=== PATIENT | female | born 1985 | race Caucasian/White ===

== ENCOUNTER 2024-02-19 13:46 | Outpatient (CLI) | payer BC, SELFPAY ==
--- NOTE | ~2024-02-19 | MM_ITS ---
EXAMINATION: MM screening [place] BI w nieves HISTORY: Screening TECHNIQUE: Craniocaudal and mediolateral oblique 3-D tomosynthesis images were obtained and synthetic 2-D images were generated. CAD analysis was submitted and interpreted. COMPARISON: No prior mammogram is available for comparison at this institution. BREAST PARENCHYMAL COMPOSITION: Not Dense. The breasts are almost entirely fatty. FINDINGS: There is no evidence of suspicious mass, calcification, or architectural distortion to sugg est malignancy in either breast. There has been no suspicious interval change. IMPRESSION: 1. No mammographic evidence of malignancy. 2. Recommend routine screening mammography in one year. BI-RADS Category 1: Negative Reviewed, dictated and finalized at location B.
== END 2024-02-19 13:47 ==
LOC: MICIMG 13:47
PROVIDERS: PCP Physician Assistant; Visit Provider Obstetrics & Gynecology
DX: Z12.31 Encounter for screening mammogram for malignant neoplasm of breast (principal)
CPT/HCPCS: 77063; 77067

== ENCOUNTER 2024-08-29 14:25 | Emergency (ER) | payer BC, SELFPAY ==
[2024-08-29 14:41] VITALS: BP 128/71; PULSE 78; RESP 16; TEMP 36.4; O2SAT 99
--- NOTE | 2024-08-29 15:14 | ED_ITS ---
HPI - URI/Sore Throat General Chief Complaint: Upper Respiratory Infection Stated Complaint: Cough/Runny Nose Time Seen by Provider: 08/29/24 15:02 Source: patient and RN notes reviewed Mode of arrival: ambulatory Limitations: no limitations History of Present Illness HPI Narrative: Patient presents today with a 3 week history of cough that waxes and wanes and is occasionally productive. She also reports a 7-10 day history of nasal congestion and rhinorrhea. Denies shortness of breath or fever. She has tried NyQuil, Tylenol, and ibuprofen without much relief. Patient states her coughing creases with laughing. No history of asthma or COPD. She is a nonsmoker. States her entire family has been sick with similar symptoms in are currently on antibiotics. Related Data Home Medications ?Medication ?Instructions ?Recorded ?Confirmed ?Last Taken ?Type norethindrone 1 mg-ethinyl tablet 08/29/24 Unknown History estradiol 20 mcg (21)-iron 75 mg (7) tablet (Klaudia Fe 08/31 (28)) Allergies Allergy/AdvReac Type Severity Reaction Status Date / Time Sulfa (Sulfonamide Allergy Mild ITCHING Verified 08/29/24 14:43 Antibiotics) Review of Systems Review of Systems: CONSTITUTIONAL: Denies body aches, fever, chills, or sweats. EYES: Denies visual changes, redness, or discharge. ENT: Denies sore throat, or otalgia.+ congestion, rhinorrhea CARDIOVASCULAR: Denies chest pain, palpitations, or edema. RESPIRATORY: Denies dyspnea.+ cough GASTROINTESTINAL: Denies abdominal pain, nausea, vomiting, or diarrhea. GENITOURINARY: Denies dysuria or hematuria. SKIN: Denies rash, itching, or wounds. MUSCULOSKELETAL: Denies back pain, joint pain, or myalgia. NEUROLOGIC: Denies headache, numbness, tingling, or weakness. PSYCH: Denies depression or anxiety. [facility] Past Medical History Medical History Obesity (BMI 30-39.9) Hemorrhoids Anal fissure BRBPR (bright red blood per rectum) Social History Social History Smoking status: Never smoker Comments At time of signature, I have reviewed and agree with nursing past medical, surgical, social and family history unless otherwise noted. Please see nursing chart for further information. There is no relevant family history pertinent to the presenting complaint Exam Narrative: GENERAL: Well-appearing, well-nourished, and in no acute distress. HEAD: Normocephalic, atraumatic. EYES: EOMI. No redness or drainage. Conjunctivae normal. ENT: Mucous membranes pink and moist. Nares mildly congested with rhinorrhea. TMs normal bilaterally. Throat normal. Uvula midline. NECK: Normal AROM. Supple. No lymphadenopathy. CHEST: No respiratory distress. Clear to auscultation. HEART: Regular rate and rhythm. No murmur appreciated. EXTREMITIES: Normal range of motion. No edema. SKIN: Warm, dry, no rash. Capillary refill normal. Normal skin turgor. NEURO: No focal deficits. Alert and oriented x3. Gait steady. PSYCH: Normal affect. No signs of depression or anxiety. Course Course Level of Care: Express Care Visit Vital Signs Vital signs: Vital Signs Temperature 97.5 F L 08/29/24 14:41 Pulse Rate 78 08/29/24 14:41 Respiratory Rate 16 08/29/24 14:41 Blood Pressure 128/71 08/29/24 14:41 Pulse Oximetry 99 08/29/24 14:41 Temperature 97.5 F L 08/29/24 14:41 Pulse Rate 78 08/29/24 14:41 Respiratory Rate 16 08/29/24 14:41 Blood Pressure 128/71 08/29/24 14:41 Pulse Oximetry 99 08/29/24 14:41 Oxygen Delivery Room Air 08/29/24 14:45 Reviewed MDM - URI/Sore Throat MDM Narrative Medical decision making narrative: Patient will be started on a short course of prednisone and Augmentin for bronchitis and possible sinusitis, as well as some benzonatate for cough. Anticipatory guidance given. Differential Diagnosis Differential diagnosis: Likely upper respiratory infection, sinusitis, viral infection, bronchitis and other (Pneumonia) Critical Care Time Critical Care Time Critical Care Time: No Discharge Plan Discharge Clinical Impression: Bronchitis Sinusitis Qualifiers: Sinusitis location: unspecified location Chronicity: acute Recurrence: non- recurrent Qualified Code(s): J01.90 - Acute sinusitis, unspecified Patient Disposition: Home, Self-Care Condition: Stable Instructions: Antibiotic Form, Sinusitis (ED), Acute Bronchitis (ED) Additional Instructions: Please take all medication as prescribed. Follow-up with your PCP next week if symptoms are not improving. Your blood pressure was elevated above 120/80 today at Urgent Care. This puts you above the threshold for follow up. Please schedule a followup visit with your personal physician as soon as possible, for further evaluation and treatment. Even blood pressure exceeding 120/80 may indicate pre-hypertension. Patient Language: Guyanese Prescriptions: New benzonatate 200 mg capsule 200 mg PO TID PRN (Reason: cough) Qty: 20 0RF prednisone 20 mg tablet 40 mg PO DAILY 5 Days Qty: 10 0RF amoxicillin-pot clavulanate 875-125 mg tablet 1 tablet PO Q12H 7 Days Qty: 14 0RF No Action norethindrone-e.estradiol-iron [Klaudia Cohen 08/31 (28)] 1 mg-20 mcg (21)/75 mg (7) tablet Follow-up/Referrals: Irwin,BOSTON Torres [Primary Care Provider] - Time of Disposition: 15:17
== END 2024-08-29 15:23 | disposition home or self-care (01) ==
PROVIDERS: Emergency Provider Nurse Practitioner; PCP Physician Assistant
DX: J40 Bronchitis, not specified as acute or chronic (principal); J01.90 Acute sinusitis, unspecified; E66.9 Obesity, unspecified; Z68.41 Body mass index [BMI] 40.0-44.9, adult
CPT/HCPCS: 99213; G0463

== ENCOUNTER 2024-09-29 00:51 | Day surgery (SDC) | payer BC, SELFPAY ==
[2024-09-15 15:48] VITALS: BMI 43.0
--- NOTE | 2024-09-28 11:27 | SUR.PREOP ---
Pt called this morning inquiring about the weather and us cancelling due to the weather. Instructed the patient that we will be here to do cases tomorrow. Pt voiced understanding and said she would be here for her procedure.
--- OUTSIDE RECORDS SUMMARY | 2024-09-29 00:53 | XMS_ITS | Data Portability ---
Author Organization [facility] Jamia Griffin Address [address] [facility] [place] [place] [address] Care Team Providers Care Supervisory Geographer Name Role Phone MELISSA GAYLE Primary Care Provider Unavailab le Assessment Encounter Date Assessment Date Assessment LastModified by Organization Details LastModified Time 10/16/2023 10/16/2023 Pap smear jul [address] Stella Bashir. Mammogram was ordered , still to complete. [email or web address] Not available 10/16/2023 10:50:51 Plan of Treatment Reminders Order Date Submit Date Provider Last Modified By Organization Details Last Modified Time Details Appointments ANY 15 2024 10:30A M LAURA Blount Not available Not available Not available Lab TSH + free T4, serum 2023 024 [facility], [address], [place], [address], 11/28/2023 09:17:09 insulin, serum 2023 024 [facility], [address], [place], [address], 12/06/2023 17:07:52 lipid panel, serum 2023 024 [facility], [address], [place], [address], 11/28/2023 09:17:09 CBC w/ auto diff 2023 024 [facility], [address], [place], [address], 12/06/2023 17:07:52 CMP, serum or plasma 2023 024 [facility], [address], [place], [address], 12/06/2023 17:07:52 HbA1c (hemoglob in A1c), blood 2023 024 [facility], [address], [place], [address], 12/06/2023 17:07:52 Referral gastroent erologist referral - chronic off and on rectal irritatio n. 2023 024 MARGARET Funes [employer], [address], [address], [place], [address], 01/23/2024 17:58:33 Procedures None recorded. Surgeries None recorded. Imaging None recorded. Medication Orders alprazola m 0.5 mg tablet 2023 [id number], [address] , [place], [place], [phone], 10/27/2023 13:47:08 Patient TargetsNo targets recorded. Patient InstructionsNo instructions recorded. Reason for Referral Combination Presser Referral for Rectal irritation chronic off and on rectal irritation. Referring Physician: Melissa Gayle, Internal Medicine, Encounter Date: 10/16/2023 Results Created Date Observation Date Name Description Value Unit Range Abnormal Flag Note LastModifiedBy Organization Detail LastModifiedTime 02/19/20 24 02/19/2024 MAMMO , scree tatum, bilat eral No observ ation record ed. [email or web address] [facility] [address], [place], [address], 02/19/2024 19:50:36 Result Notes None recorded. Problems Name Problem SNOMED Code Status Onset Date Resolution Date Notes Provider Name and Address Organization Details Recorded Time Vitamin D deficiency 37756720 Active 2023 Dayan guadalupe, [place] - [facility] 4 11:46:06 Hyperlipidemia 34526822 Active 2023 Dayan Camilo [place], [place] [facility] 4 11:46:12 Generalized anxiety disorder 25876546 Active 2023 Dayan guadalupe, [place] - [facility] 4 11:46:21 Body mass index 40+ - severely obese 096706057 Active 2024 Sarita Cole MA null, [place] - [facility] 5 17:11:52 Problem Notes None recorded. Procedures Surgical History Date Name Laterality Status Provider Name and Address Organization Details Recorded Time extraction of wisdom tooth completed Dayan Camilo [place] - [facility] 10/16/2023 11:47:13 Imaging Results Imaging Date Name Status LastModified by Organiz ation Details LastModified Time 02/19/2024 MAMMO, screening, bilateral completed [email or web address] [facility] [address], [place], [address], 02/19/2024 19:50:36 Procedure Notes None recorded. Medical Equipment None Reported. Allergies Allergen ID Allergen Name Allergen Category Reaction Reaction Severity Criticality Documentation Date Start Date Code Code System Note Provider Name and Address Organization Details Recorded Time 309396 Substance with sulfonami de structure and antibacte rial mechanism of action (substanc e) medicatio n Not available Not available Not available 10/16/2023 28279 8003 SNOMED Not Available Not Available Not Available Medications Name Sig Start Date Stop Date Status Note LastModified by Organization Details LastModified Time benzonatate 200 mg capsule TAKE 1 CAPSULE BY MOUTH THREE TIMES DAILY NEEDED FOR COUGH active Not Available Not Available No t Available Medrol (Juan Francisco) 4 mg tablets in a dose pack use as directed 2024 active Not Available Not Available Not Avai lable prednisone 20 mg tablet TAKE 2 TABLETS BY MOUTH DAILY FOR 5 DAYS 09/22 completed Not Available Not Available Not Available Zithromax Z-Juan Francisco 250 mg tablet TAKE 2 TABLETS (500 MG) BY ORAL ROUTE ONCE DAILY FOR 1 DAY THEN 1 TABLET (250 MG) BY ORAL ROUTE ONCE DAILY FOR 4 DAYS 2024 active Not Available Not Available Not Avai lable hydrocortis one 2.5 % topical cream with perineal applicator APPLY LIBERALLY TOPICALLY TO THE AFFECTED AREA TWICE DAILY NEEDED active Not Available Not Available No t Available alprazolam 0.5 mg tablet TAKE 1 TABLET BY MOUTH THREE TIMES DAILY NEEDED FOR PLANE FLIGHTS active Not Available Not Available No t Available alprazolam 0.25 mg tablet TAKE 1 TABLET BY MOUTH 1 HOUR PRIOR TO VISIT 04/20 completed Not Available Not Available Not Available famciclovir 500 mg tablet TAKE 1 TABLET BY MOUTH TWICE DAILY NEEDED active Not Available Not Available No t Available amoxicillin 875 mg-potassiu m clavulanate 125 mg tablet TAKE 1 TABLET BY MOUTH EVERY 12 HOURS FOR 7 DAYS 09/22 completed Not Available Not Available Not Available [facility] 08/31 () 1 mg-20 mcg (21)/75 mg (7) tablet active Not Available Not Available N ot Available [facility] 08/31 () active Not Available Not Available No t Available Vitals Date Recorded Body weight Heart rate Respiratory rate Oxygen saturation Oxygen saturation in Arterial blood by Pulse oximetry Body mass index (BMI) Body height Systolic blood pressure Diastolic blood pressure Provider Name and Address Organization Details Last Updated DateTime 4 975085. 53 g 95 /min 18 /min 98 % 98 % 42.4 kg/m2 170.18 cm 128 mm[Hg] 86 mm[Hg] Sarita Cole MA [facility] 4 10:28:48 Date Recorded Systolic blood pressure Diastolic blood pressure Provider Name and Address Organization Details Last Updated DateTime 10/16/2023 128 mm[Hg] 90 mm[Hg] LAURA Blount Attn: Accounting,[address] [facility], [place], [address], [facility] 10/16/2023 11:00:47 Date Recorded Body height Body mass index (BMI) Body weight Heart rate Oxygen saturation Oxygen saturation in Arterial blood by Pulse oximetry Systolic blood pressure Diastolic blood pressure Provider Name and Address Organization Details Last Updated DateTime 5 170.18 cm 44.3 kg/m2 495313. 2 g 83 /min 99 % 99 % 128 mm[Hg] 80 mm[Hg] Sarita Cole MA [place] - [facility] 17:14:10 Date Recorded Respiratory rate Systolic blood pressure Diastolic blood pressure Provider Name and Address Organization Details Last Updated DateTime 09/22/2024 18 /min 130 mm[Hg] 84 mm[Hg] LAURA Blount Attn: [address]ing[address] [facility], [place], [address], [place] - [facility] 09/22/2024 17:21:44 Social History Question Answer Notes LastModified by Organizat ion Details LastModified Time Tobacco Smoking Status Never Smoker Sarita Cole MA null, [facility] 10/16/2023 10:33:04 Do You Have An Advance Directive? No Information not available 09/22/2024 What Is Your Level Of Alcohol Consumption? Occasional Socailly WINE Information not available 10/16/2023 Are You Blind Or Do You Have Difficulty Seeing? No Information not available 10/16/2023 What Is Your Level Of Caffeine Consumption? Moderate Cup Of Cofee Information not available 10/16/2023 In The 14 Days Before Symptom Onset, Have You Had Close Contact With A Laboratory-confi rmed COVID-19 While That Case Was Ill? No Information not available 10/16/2023 In The 14 Days Before Symptom Onset, Have You Had Close Contact With A Person Who Is Under Investigation For COVID-19 While That Person Was Ill? No Information not available 10/16/2023 Have You Been To An Area Known To Be High Risk For COVID-19? No Information not available 10/16/2023 Are You Currently Employed? Yes Information not available 10/16/2023 Are You Deaf Or Do You Have Serious Difficulty Hearing? No Information not available 10/16/2023 What Type Of Diet Are You Following? 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 No Information not available 10/16/2023 What Was The Date Of Your Most Recent Tobacco Screening? 09/22/2024 Information not available 09/22/2024 What Is Your Relationship Status? Information not available 09/22/2024 Do You Use Your Seat Belt Or Car Seat Routinely? Yes Information not available 10/16/2023 Do You Have Smoke And Carbon Monoxide Detectors In Your Home? Yes Information not available 10/16/2023 Do You Use Any Illicit Or Recreational Drugs? No Information not available 10/16/2023 Do You Or Have You Ever Used Any Other Forms Of Tobacco Or Nicotine? No Information not available 10/16/2023 Sex: Female Functional Status Question Answer Note LastModified by Organization D etails LastModified Time Are you able to care for yourself? Yes Information n ot available 10/16/2023 What is your exercise level? None Information not available 10/16/2023 Mental Status None recorded. Family History Relationship Description Onset Age of this Age Resolved Age Notes LastModified by Organization Details LastModified Time Father General health good [email or web address] Not available 01/2024 11:46:40 Medical History Condition Response Coronary Artery Disease N Other N Atrial Fibrillation N High Blood Pressure N Thyroid Problems N Kidney or Bladder Problems N Depression N COPD N Blood Clots N GI Problems N Skin Problems N Anemia N Heart Attack (ID) N Diabetes N Anxiety Disorder N Muscle, Joint, or Bone Problems N Seizures/Epilepsy N Acid Reflux (GERD) N Cancer N Stroke N Allergies N Asthma N High Cholesterol N Hepatitis N Liver Disease N Headaches N Osteoporosis N Heart Failure N Gynecological History Statement/Question Response Flow Moderate Date of LMP 09/02/2023 On BCP's at Conception? N Menses Monthly Y Duration of Flow (days) 3 Current Control Method BCPs LMP Approximate Obstetrics History GPAL:G 2 P 2 0 0 2 Type Value Multiple Births 0 Full Term 2 Induced 0 Spontaneous 0 Premature 0 Living 2 Ectopics 0 Total 2 Immunizations Vaccine Type Date Status Note Provider Parker mullins and Address Organization Details Recorded Time MMR 5 completed Sarita Cole [place], [place] [facility] 09/22/2024 17:10:00 MMR 3 completed Sarita [place] [facility] 09/22/2024 17:10:00 Tdap 6 completed Sarita Cole [place] [facility] 09/22/2024 17:10:00 OPV 5 completed Sarita Cole [place] [facility] 09/22/2024 17:10:00 OPV 5 completed Sarita [place] [facility] 09/22/2024 17:10:00 OPV 9 completed Sarita [place] [facility] 09/22/2024 17:10:00 OPV 6 completed Sarita [place] [facility] 09/22/2024 17:10:00 OPV 4 completed Sarita [place] [facility] 09/22/2024 17:10:00 Td (adult), 2 Lf tetanus toxoid, preservative free, adsorbed 9 completed Sarita [place] [facility] 09/22/2024 17:10:00 Hep A, pediatric, unspecified formulation 0 completed Sarita [place] [facility] 09/22/2024 17:10:00 Hep A, pediatric, unspecified formulation 0 completed Sarita [place] [facility] 09/22/2024 17:10:00 DTaP 5 completed Sarita [place] [facility] 09/22/2024 17:10:00 DTaP 5 completed Sar[place] [facility] 09/22/2024 17:10:00 DTaP 9 completed Sarita [place] [facility] 09/22/2024 17:10:00 DTaP 6 completed Sarita Cole [place] [facility] 09/22/2024 17:10:00 DTaP 4 completed Sarita Cole MA [facility], [place] - [facility] 09/22/2024 17:10:00 Past Encounters Encounter ID Performer Location Encounter Start Date Encounter Closed Date Diagnosis/Indication Diagnosis SNOMED-CT Code Diagnosis ICD10 Code Diagnosis Note [id number] LAURA Blount Count includes the [facility] [address] [place] [address] 10/16/2023 10:09:58 10/16/2023 11:47:51 Adult health examination 435283155 Z00.00 new pt well exam, fasting labs ordered for annual evaluation and baseline. Rectal irritation 417456 002 K62.89 refer to GI for evaluation in chronic wax and wane rectal irritation . Cholesterol screening 27 3457088 Z13.220 fasting lipids are ordered. Diabetes m ellitus screening 784457145 Z13.1 screening for diabetes ordered. 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 nearly full resolution . 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 Health Concerns Section Related Observation LastModified by Organization Detai ls LastModified Time None Recorded Concern Status LastModified by Organization Details LastModified Time None Recorded Advance Directives Directive N: Payers Encounter Date Sequence Insurance Name Policy Number Policy [employer] Covered Member ID [employer] Member ID Guarantor Name 10/16/2023 1 [place] [id number] Gal Stewart [id number] Lashawn Stewart Notes Date Note Type Note Provider Name and Address Organization Details Recorded Time 10/16/2023 text/html Generic HPI TemplateReported bypatient.Notes:Pt. states that she has also Been experiencing Rectal Itching believes it might have come from her probiotics that she was taking states she isn't sure if that was the reason but that's when the symptoms started. States that she still has flare up's it comes and goes.Pt. states that she also gets anxiety when she's in closed spaces or moving states that she gets nervous when flying also. Also hx of suspected calvillo's palsy in 2020. LAURA Blount Attn: Accounting,[address] [facility], [place], [address], [facility] 10/27/2023 13:50:30 OBGyn Episode No OBEpisode recorded.
--- OUTSIDE RECORDS SUMMARY | 2024-09-29 00:54 | XMS_ITS | Clinical Summary ---
Author Organization [facility] Address [address] [place] [phone] Phone Care Team Providers Care Twisting Machine Operator Name Role Phone Provider, None Primary Care Provider Unavailabl e Allergies Active Allergy Reactions Criticality Noted Date Comments Sulfa Antibiotics Itching 06/06/2020 Medications No known medications Active Problems No known active problems Social History Tobacco Use Types Packs/Day Years Used Date Smoking Tobacco: Never Assessed Comments Unknown Sex and Gender Information Value Date Recorded Sex Assigned at Not on file Legal Sex Female 3:59 PM CDT Gender Identity Not on file Sexual Orientation Not on file Plan of Treatment Health Maintenance Due Date Last Done Comments Hepatitis C Virus (HCV) Screening 1983 Hepatitis B Immunization (1 of 3 - 19+ 3-dose series) 2002 Pap Smear 2004 Cervical Cancer Screening (CCS) 2013 HPV/Cotest 2013 Discussion re Starting/Frequency of Mammograms 2023 Influenza Immunization (#1) 2024 SARS-COV-2 Immunization ( season) 2024 Respiratory Syncytial Virus (RSV) Immunization (Adult) (1 - 1-dose 75+ series) 2058 DTaP/Tdap/Td Immunization Discontinued 2015, 11/15/1998, 12/14/1988, Additional history exists TdaP Immunization Completed 01/01/2016 Meningococcal Immunization (ACWY) Aged Out No longer eligible based on patient's age to complete this topic Pneumococcal Immunization Combined Aged Out No longer eligible based on patient's age to complete this topic Rotavirus Immunization Aged Out No lo nger eligible based on patient's age to complete this topic Insurance [place] [address] Care Teams Twisting Machine Operator Relationship Specialty Start Date End Date Provider, None [place] PCP - General 06/06/20
--- OUTSIDE RECORDS SUMMARY | 2024-09-29 00:54 | XMS_ITS | Data Portability ---
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 Lab None record ed. Referral None record ed. Procedures None record ed. Surgeries None record ed. Imaging None record ed. Medication Orders None record ed. Patient TargetsNo targets recorded. Patient InstructionsNo instructions recorded. Reason for Referral None Reported. Results Created Date Observation Date Name Description Value Unit Range Abnormal Flag Note LastModifiedBy Organization Detail LastModifiedTime 04/04/20 21 04/04/2021 VITAM IN D 25-HY DROXY vd25oh 41.6 NG/mL 30-100 Vitam in D Statu s: Defic ient: <20 ng/mL Insuf ficie nt: 20-29 ng/mL Suffi cient : 30-10 0 ng/mL Not Available [facility] (Lab) [address] [place], [address], 04/04/2021 13:51:56 04/04/2004/04/2021 TSH thyroid-stim ulating hormone 2.310 uIU/m L 0.465- 4.680 Not Available [facility] (Lab) [address] [place], [address], 04/04/2021 14:02:00 04/04/20 21 04/04/2021 T4 FREE free T4 0.99 NG/dL 0.78-2 .19 Not Available [facility] (Lab) [address] [place], [address], 04/04/2021 13:51:59 04/04/20 21 04/04/2021 HEMOG LOBIN A1C HA1C 5.0 % 4.0-6. 0 Diabe jaspreet Scree tatum Crite harris: <5.7% Consi stent with absen ce of diabe jaspreet 5.7-6 .4% Consi stent with incre ased risk for diabe jaspreet (pred iabet es) >OR=6 .5% Consi stent with diabe jaspreet REFER ENCE: Diabe jaspreet Care 2016, 39(Clemente ppl.1 ):s13 -s22 Not Available [facility] (Lab) [address] [place], [address], 04/04/2021 13:33:31 04/04/20 21 04/04/2021 LIPID PANEL cholesterol 208 mg/dL 140-19 9 high NIH CAITIE NSUS RECOM MENDA TION FOR ALICE STERO L: ADULT CHILD LOW RISK: <200 <170 BORDE RLINE : <200- 239 ----- HIGH RISK: >240 >200 Not Available [facility] (Lab) [address] [place], [address], 04/04/2021 13:33:06 04/04/20 21 04/04/2021 LIPID PANEL triglyceride s 120 mg/dL 0-150 NIH CAITIE NSUS REPOR T RECOM MENDA TION FOR TRIGL YCERI LAWRENCE: ADULT CHILD LOW RISK: <150 ----- BODER LINE: 150-1 99 ----- HIGH RISK: >200 ----- Not Available [facility] (Lab) [address] [place], [address], 04/04/2021 13:33:06 04/04/20 21 04/04/2021 LIPID PANEL HDL cholesterol 69 mg/dL 40- Not Available [facility] (Lab) [address] [place], [address], 04/04/2021 13:33:06 04/04/20 21 04/04/2021 LIPID PANEL LDL cholesterol, calculated 115 mg/dL 0-130 NIH CAITIE NSUS REPOR T RECOM MENDA TIONS FOR LDL: ADULT CHILD LOW RISK <130 <110 (OPTI MAL LDL) <100 ----- BORDE RLINE : 130-1 59 ----- HIGH RISK: >160 >130 A TRIGL YCERI DE RESUL T >400 INVAL IDATE S THE CALCU LATIO N FOR LDL FRACT IONAT ION - THE LDL RESUL T WILL NOT BE REPOR JOSÉ LUIS. Not Available [facility] (Lab) [address] [place], [address], 04/04/2021 13:33:06 03/08/20 21 03/08/2021 CT, head + brain , w/o contr ast No observ ation record ed. [id number] [facility] ([facility] Scheduling) [address] [place], [address], 10/10/2022 14:52:57 Result Notes None recorded. Problems Name Problem SNOMED Code Status Onset Date Resolution Date Notes Provider Name and Address Organization Details Recorded Time Generalized anxiety disorder 32739483 Active 2022 Not Available [facility] 3 14:49:06 Rib pain 031783606 Active Not Available [facility] 3 14:49:06 Vitamin D deficiency 25936205 Active 2022 BETH Elaine [address] [address], [place], [address] , [employer] 3 11:01:46 Hyperlipidemi a 81251548 Active 2022 BETH Elaine [address] [address], [place], [address] , [employer] 3 11:01:49 Pruritus ani 75708703 Active 2022 BETH Elaine [address] [facility], [facility] [address], [place], [address] , [place] [facility] 3 11:01:54 Problem Notes None recorded. Procedures Surgical History Date Name Laterality Status Provider Name and Address Organization Details Recorded Time [place] [facility] completed Not Available [facility] 10/10/2022 14:45:34 Imaging Results Imaging Date Name Status LastModified by Organiz ation Details LastModified Time 03/08/2021 CT, head + brain, w/o contrast completed [id number] [facility] ([facility] Call Scheduling) [address] [place], [address], 10/10/2022 14:52:57 Procedure Notes None recorded. Medical Equipment None Reported. Allergies Allergen ID Allergen Name Allergen Category Reaction Reaction Severity Criticality Documentation Date Start Date Code Code System Note Provider Name and Address Organization Details Recorded Time 94142 Substance with sulfonami de structure and antibacte rial mechanism of action (substanc e) medicatio n Not available Not available Not available 10/10/2022 50791 8003 SNOMED Not Available [facility] 14:52:51 Medications Name Sig Start Date Stop Date Status Note LastModified by Organization Details LastModified Time fluconazole 150 mg tablet Take 1 PO x 1 active Not Available Not Available No t Available prednisone 20 mg tablet 03/16 completed Not Available Not Available Not Available valacyclovi r 500 mg tablet TAKE 2 TABLETS BY MOUTH TWICE DAILY FOR 7 DAYS 03/16 completed Not Available Not Available Not Available alprazolam 0.25 mg tablet TAKE 1 TABLET BY MOUTH 1 HOUR PRIOR TO VISIT active Not Available Not Available No t Available lorazepam 0.5 mg tablet Take 0.5 tablets twice a day by oral route as needed. 03/16 completed Not Available Not Available Not Available famciclovir 500 mg tablet TAKE 1 TABLET BY MOUTH TWICE DAILY NEEDED active Not Available Not Available No t Available nystatin 100,000 unit/gram topical cream APPLY TO THE AFFECTED AREA(S) BY TOPICAL ROUTE 2 TIMES PER DAY PRN active Not Available Not Available No t Available clotrimazol e-betametha sone 1 %-0.05 % topical cream APPLY TO THE AFFECTED AREA THREE TIMES DAILY active Not Available Not Available No t Available hydrocortis one 2.5 % topical cream APPLY THIN LAYER TOPICALLY TO THE AFFECTED AREA TWICE DAILY NEEDED active Not Available Not Available No t Available Ortho Tri-Cyclen (28) 0.18 mg(7)/0.215 mg(7)/0.25 mg(7)-35 mcg tablet active Not Available Not Available N ot Available Microgestin 08/31 (21) 1 mg-20 mcg tablet active Not Available Not Available Not Available multivitami n TK 1T PO QD 2020 active Not Available Not Available Not Avai lable Blisovi Fe 08/31 (28) 1 mg-20 mcg (21)/75 mg (7) tablet TAKE 1 TABLET BY MOUTH EVERY DAY active Not Available Not Available No t Available ID NOW COVID-19 Test Kit TEST DIRECTED TODAY 05/03 completed Not Available Not Available Not Available Vitals Date Recorded Body mass index (BMI) Body mass index (BMI) Body mass index (BMI) Body mass index (BMI) Body height Body height Body height Body height Oxygen saturation Oxygen saturation in Arterial blood by Pulse oximetry Oxygen saturation Oxygen saturation in Arterial blood by Pulse oximetry Oxygen saturation Oxygen saturation in Arterial blood by Pulse oximetry Oxygen saturation Oxygen saturation in Arterial blood by Pulse oximetry Heart rate Heart rate Heart rate Heart rate Body temperature Body temperature Body temperature Body temperature Body weight Body weight Body weight Body weight Systolic blood pressure Diastolic blood pressure Systolic blood pressure Diastolic blood pressure Systolic blood pressure Diastolic blood pressure Systolic blood pressure Diastolic blood pressure Provider Name and Address Organization Details Last Updated DateTime 3 35.2 kg/m2 35.1 kg/m2 38.2 kg/m2 39.5 kg/m2 170.18 cm 170.18 cm 170.18 cm 170.18 cm 97 % 97 % 98 % 98 % 98 % 98 % 97 % 97 % 82 /min 82 /min 98 /min 98 /min 96.5 [degF] 97.4 [degF] 97.4 [degF] 97.4 [degF] 635987. 28 g 458923. 69 g 020031. 54 g 311741. 28 g 112 mm[Hg] 80 mm[Hg] 112 mm[Hg] 70 mm[Hg] 124 mm[Hg] 80 mm[Hg] 128 mm[Hg] 80 mm[Hg] Not Available [facility] 3 14:46:51 Date Recorded Body height Body mass index (BMI) Body weight Body temperature Heart rate Oxygen saturation Oxygen saturation in Arterial blood by Pulse oximetry Systolic blood pressure Diastolic blood pressure Provider Name and Address Organization Details Last Updated DateTime 3 170.18 cm 42.1 kg/m2 726870. 35 g 97.4 [degF] 100 /min 98 % 98 % 132 mm[Hg] 82 mm[Hg] Milady Crenshaw MA [place] [facility] 3 10:26:39 Social History Question Answer Notes LastModified by Organization Details LastModified Time Tobacco Smoking Status Never Smoker Not Available [facility] 10/10/2022 14:44:57 What Is Your Level Of Alcohol Consumption? Occasional SOCIALLY [email or web address].030 [id number] Information not available 10/10/2022 Do You Wear A Helmet When Biking? No MIGRATION.030 [id number] Information not available 10/10/2022 What Is Your Level Of Caffeine Consumption? Occasional [email or web address].030 [id number] Information not available 10/10/2022 In The 14 Days Before Symptom Onset, Have You Had Close Contact With A Laboratory-confi rmed COVID-19 While That Case Was Ill? No MIGRATION.030 [id number] Information not available 10/10/2022 In The 14 Days Before Symptom Onset, Have You Had Close Contact With A Person Who Is Under Investigation For COVID-19 While That Person Was Ill? No MIGRATION.030 [id number] Information not available 10/10/2022 What Type Of Diet Are You Following? REGULAR TRYING TO EAT LESS CARBS, PROTEIN SHAKES MIGRATION.030 [id number] Information not available 10/10/2022 What Is The Highest Grade Or Level Of School You Have Completed Or The Highest Degree You Have Received? 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 No MIGRATION.030 [id number] Information not available 10/10/2022 What Is The Fluoride Status Of Your Home? Unknown MIGRATION.0301 [id number] Information not available 10/10/2022 Are There Any Guns Present In Your Home? Yes MIGRATION.0301 [id number] Information not available 10/10/2022 Do You Use Insect Repellent Routinely? No MIGRATION.0301 [id number] Information not available 10/10/2022 Where Do You Live? [facility] MIGRATION.0301 [id number] Information not available 10/10/2022 What Was The Date Of Your Most Recent Tobacco Screening? 12/27/2022 [email or web address] Information not available 12/27/2022 Do You Have Any Pets? Yes MIGRATION.0301 [id number] Information not available 10/10/2022 What Is Your Relationship Status? MIGRATION.0301 [id number] Information not available 10/10/2022 Do You Use Your Seat Belt Or Car Seat Routinely? Yes MIGRATION.0301 [id number] Information not available 10/10/2022 Do You Have Smoke And Carbon Monoxide Detectors In Your Home? Yes MIGRATION.0301 [id number] Information not available 10/10/2022 Are You Passively Exposed To Smoke? No MIGRATION.0301 [id number] Information not available 10/10/2022 Are There Any Smokers In Your House? No MIGRATION.0301 [id number] Information not available 10/10/2022 Do You Feel Stressed (tense, Restless, Nervous, Or Anxious, Or Unable To Sleep At Night)? [id number] MIGRATION.0301 [id number] Information not available 10/10/2022 Do You Use Any Illicit Or Recreational Drugs? No MIGRATION.0301 [id number] Information not available 10/10/2022 Do You Use Sunscreen Routinely? Yes MIGRATION.0301 [id number] Information not available 10/10/2022 Have You Recently Traveled Abroad? No MIGRATION.0301 [id number] Information not available 10/10/2022 Do You Have Any Dietary Restrictions? No MIGRATION.0301 [id number] Information not available 10/10/2022 Sex: Unknown Functional Status Question Answer Note LastModified by Organizat ion Details LastModified Time What is your exercise level? Occasional [id number] Information not available 10/10/2022 Mental Status None recorded. Family History Relationship Description Onset Age of this Age Resolved Age Notes LastModified by Organization Details LastModified Time Father No current problems or disability [id number] Not available 10/10/2022 14:45:35 Mother No current problems or disability [id number] Not available 10/10/2022 14:45:36 Medical History Condition Response NERVE DISEASE N BLINDNESS N RHEUMATIC FEVER N KIDNEY STONES N BLADDER PROBLEMS N MRSA N OTHER # 1 N POLIO N LUNG DISEASE/DISORDER N HISTORY OF DRUG ABUSE N RADIATION / CHEMOTHERAPY N COPD N Other # 2 N BLOOD DISEASES N EAR OR HEARING PROBLEMS N MUMPS N SHINGLES N DEPRESSION (INCLUDING POST ) N BOWEL PROBLEMS N STROKE/TIA N ULCERS N BENIGN PROSTATIC HYPERPLASIA N MEASLES N HYPOTENSION N MYOCARDIAL INFARCTION N OBESITY N GERD/NAUSEA N ANEURYSM N URINARY/BLADDER/KIDNEY PROBLEMS N CORONARY ARTERY DISEASE (CAD) N ADDICTION CONCERNS N Impotence N ENDOMETRIOSIS N USE OF BLOOD THINNERS N SKIN PROBLEMS N GASTROINTESTINAL DISORDER N PERIPHERAL VASCULAR DISEASE N MUSCLE,JOINT OR BONE PROBLEMS N GASTROINTESTINAL BLEEDING N BLOOD CLOTS N ASTHMA N CATARACTS N ERECTILE DYSFUNCTION N VARICOSITIES N GI PROBLEMS N Low Testosterone N INFERTILITY N AIDS/HIV N CHEMOTHERAPY / RADIATION N LIVER DISEASE N MALE HYPOGONADISM N HYPERTENSION N Deficiency Y TOURETTE'S N ANXIETY DISORDER N BLOOD TRANSFUSION N ANEMIA/BLOOD DISORDER N CHRONIC EAR INFECTIONS N BRONCHITIS N TUBERCULOSIS N GLAUCOMA N FOOT PROBLEM N DIVERTICULITIS N SLEEP APNEA N CHICKENPOX N INFECTIOUS DISEASE N PROSTATE N HEART ARRHYTHMIA N INSOMNIA N HIGH CHOLESTEROL / HYPERLIPIDEMIA N EYE PROBLEMS N HYPERTHYROIDISM N EDEMA N CHRONIC PAIN SYNDROME N HYPOTHYROIDISM N CAROTID BLOCKAGE N CONSTIPATION N BACK / NECK PROBLEMS N ATHEROSCLEROSIS N BREAST PROBLEMS N DIALYSIS N ECZEMA N OSTEOPOROSIS N ARTHRITIS N APPENDICITIS N DIABETES, TYPE N BAD TEETH N ENT N HEARTBURN / REFLUX N AUTISM SPECTRUM DISORDER (ASD) N HEPATITIS / LIVER DISEASE N GOUT N SLEEP DISORDER N ALZHEIMER'S DISEASE N Brain Problems N DEMENTIA N HERPES N SEIZURES/EPILEPSY N HEADACHES/MIGRAINES N VASCULAR DISEASE N PACEMAKER N Blood Disorder N DIZZINESS N HEART DISEASE/HEART PROBLEMS N KIDNEY DISEASE N MULTIPLE SCLEROSIS N CANCER: SPECIFY N CARDIAC ARRHYTHMIA N ATRIAL FIBRILLATION N Gall Stones N PULMONARY EMBOLISM N AUTOIMMUNE DISEASE N Gynecological HistoryNo gynecological history recorded. Obstetrics History GPAL:G 0 P 0 0 0 0 Past Encounters Encounter ID Performer Location Encounter Start Date Encounter Closed Date Diagnosis/Indication Diagnosis SNOMED-CT Code Diagnosis ICD10 Code Diagnosis Note [id number] [facility] Internal Med [place] [address] [facility], [place] [address] [place] [address] 03/16/2021 00:00:00 03/16/2021 17:23:17 [id number] [facility] Internal Med [facility] [address] [place] [address] Ave[address] [facility] [address] [place] [address] 04/27/2021 00:00:00 04/27/2021 15:26:25 [id number] [facility] Internal Med [facility] [address] [place], [place] [address]e., [address] [address] 10/23/2021 00:00:00 10/23/2021 12:44:49 [id number] [facility] Internal Med [facility] [address] [place], [place] [address]., [address] [address] 05/03/2022 00:00:00 05/03/2022 11:35:36 [id number] BETH Elaine [facility] Internal Med [facility] [address] [place], [place] [address]., [address] [address] 12/27/2022 10:17:58 12/27/2022 10:37:09 Vitamin D deficiency 70924459 E55.9 She declined labs at her physical secondary to cost Hyperlipidemia 67043935 E78.5 Mild, no meds Working on lifestyle measures Pruritus ani 18612209 L2 9.0 Resolved now that she stopped her probiotic supplement History an d physical examination, pre-employment 781523279 Z02.1 Her form was filled out and given to patient today Health Concerns Section Related Observation LastModified by Organization Detai ls LastModified Time None Recorded Concern Status LastModified by Organization Details LastModified Time None Recorded Advance Directives Directive None Recorded Payers Encounter Date Sequence Insurance Name Policy Number Policy [employer] Covered Member ID [employer] Member ID Guarantor Name 12/27/2022 1 [place] [id number] Gal Stewart [id number] Lashawn Stewart Notes Date Note Type Note Provider Name and Address Organization Details Recorded Time 12/27/2022 text/html Lashawn presents today as she needs a physical exam for a new job and a form filled out. She reports she has got a new job with [employer]. 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 She is excited for this job change. She also needs a TB test, but she already got that done at [facility] and per patient that was negative. She reports she is overall feeling well today. She tells me that the rectal itching she was having at last visit is now resolved as she realized it was related to a probiotic supplement she was taking. Now that she stop the probiotic supplement that has improved. Brooke Giron, WRECKING SUPERVISOR-C [address] [facility], [facility] [address], [place], [address], [facility] - [facility] 12/27/2022 11:03:09 OBGyn Episode No OBEpisode recorded.
[2024-09-29 09:24] VITALS: BP 141/100; PULSE 94; RESP 16; TEMP 36.1; O2SAT 100; BMI 42.9
[2024-09-29] MEDS: LACTATED RINGERS 1,000 ML 150 ML IV CONT (09:42)
--- NOTE | 2024-09-29 09:56 | P.HP_ITS ---
History of Present Illness History of Present Illness Consent: Risks, benefits, and alternatives have been discussed and questions answered. Patient agrees to proceed with procedure. Chief complaint: Hemorrhage of anus and rectum, Anal fissure Narrative: Lashawn Stewart is a 39 year old female here for first colonoscopy, had anal fissure that healed Review of Systems Review of Systems: All systems reviewed & are unremarkable except as noted in HPI and below PMFSH Past Medical History Medical History Obesity (BMI 30-39.9) Hemorrhoids Anal fissure BRBPR (bright red blood per rectum) Social History Social History Smoking status: Never smoker Alcohol intake: current Substance use: never Substance use type: does not use Meds Home Medications and Allergies Home Medications ?Medication ?Instructions ?Recorded ?Confirmed ?Type amoxicillin 875 mg-potassium 1 tablet PO Q12H 7 days #14 tabs 08/29/24 09/29/24 Rx clavulanate 125 mg tablet benzonatate 200 mg capsule 200 mg PO TID PRN cough #20 caps 08/29/24 Rx norethindrone 1 mg-ethinyl 1 tablet PO DAILY 08/29/24 09/29/24 History estradiol 20 mcg (21)-iron 75 mg (7) tablet (Klaudia Fe 08/31 (28)) prednisone 20 mg tablet 40 mg (2 x 20 mg) PO DAILY 5 days 08/29/24 Rx #10 tabs alprazolam 0.5 mg tablet 0.5 mg PO PRN 09/15/24 09/15/24 History Allergies Allergy/AdvReac Type Severity Reaction Status Date / Time Sulfa (Sulfonamide Allergy Mild ITCHING Verified 09/29/24 09:22 Antibiotics) Vital Signs Vital Signs - 24 hr 09/29/24 09:24 Temperature 97.0 F L Pulse Rate 94 Respiratory Rate 16 Blood Pressure 141/100 H Pulse Oximetry 100 Oxygen Delivery Room Air Exam Const: General: comfortable and no acute distress HENMT: Face/Nose/Sinus: Normal nares present Eyes: General: appearance normal, both eyes and all related structures Neck: Neck: no JVD Resp: Auscultation: clear to auscultation bilaterally Cardio: Rate: regular rate Rhythm: regular rhythm GI: Inspection: non-distended GI Palp: Yes Soft to palpation Skin: General skin exam: normal color Neuro: General: gait normal Speech: normal speech Extrem: General: normal to inspection Psych: Mental Status: mental status grossly normal Assessment and Plan Assessment and plan (1) Anal fissure: Code(s): K60.2 - Anal fissure, unspecified Status: Acute (2) BRBPR (bright red blood per rectum): Code(s): K62.5 - Hemorrhage of anus and rectum Status: Acute Assessment and Plan: colonoscopy
--- NOTE | 2024-09-29 10:00 | P.PNAN_ITS ---
Anes - Initial Pre Proc Eval Procedure: Operation Date: 09/29/24 10:30 Proposed Procedures p Colonoscopy - Daniel Proctor MD Date/Time: 09/29/24 10:00 Surgeon: Daniel Proctor MD Pre Op Diagnosis: Hemorrhage of anus and rectum, Anal fissure Patient Data Age: 39 Gender: F Height: 1.7 m Weight: 124.4 kg Last Vital Signs Temp 97.0 F L 09/29/24 09:24 Pulse 94 09/29/24 09:24 Resp 16 09/29/24 09:24 BP 141/100 H 09/29/24 09:24 Pulse Ox 100 09/29/24 09:24 O2 Del Method Room Air 09/29/24 09:24 Allergies Allergy/AdvReac Type Severity Reaction Status Date / Time Sulfa (Sulfonamide Allergy Mild ITCHING Verified 09/29/24 09:22 Antibiotics) Home Medications ?Medication ?Instructions ?Recorded ?Confirmed ?Type amoxicillin 875 mg-potassium 1 tablet PO Q12H 7 days #14 tabs 08/29/24 09/29/24 Rx clavulanate 125 mg tablet benzonatate 200 mg capsule 200 mg PO TID PRN cough #20 caps 08/29/24 Rx norethindrone 1 mg-ethinyl 1 tablet PO DAILY 08/29/24 09/29/24 History estradiol 20 mcg (21)-iron 75 mg (7) tablet (Klaudia Fe 08/31 (28)) prednisone 20 mg tablet 40 mg (2 x 20 mg) PO DAILY 5 days 08/29/24 Rx #10 tabs alprazolam 0.5 mg tablet 0.5 mg PO PRN 09/15/24 09/15/24 History Patient hx anesthesia problems: none Family hx anesthesia problems: none Results Review: All pre-operative results and documents have been reviewed as part of the pre- operative evaluation. [facility] Past Medical History Medical History Obesity (BMI 30-39.9) Hemorrhoids Anal fissure BRBPR (bright red blood per rectum) Social History Social History Smoking status: Never smoker Alcohol intake: current Substance use: never Substance use type: does not use Anes - Eval Final PreProcedure Day of Procedure 09/29/24 10:00 Patient weight: morbidly obese Lungs: normal air movement Airway: Mallampati scale class II Neurological: alert and oriented Last oral intake: >/= 8 hours ASA classification: III Emergent: no Anesthetic plan: proceed Anesthesia type and monitoring: general GIVS and standard monitoring Results Review: All pre-operative results and documents have been reviewed as part of the pre- operative evaluation. BMI 43. Informed Consent: The patient's anesthetic plan and its attendant risks and benefits were discussed with the patient/family/POA. Questions were solicited and answers provided to the satisfaction of the patient/family/POA.
[2024-09-29 10:15] VITALS: BP 117/55; PULSE 84; RESP 20; O2SAT 100
[2024-09-29 10:17] LABS: BEDSIDEPREGUCG Negative (Negative)
[2024-09-29 10:25] VITALS: BP 117/62; PULSE 70; RESP 18; O2SAT 100
[2024-09-29 10:35] VITALS: BP 112/64; PULSE 74; RESP 18; O2SAT 99
== END 2024-09-29 10:40 | disposition home or self-care (01) ==
PROVIDERS: PCP Physician Assistant; Referring Provider Nurse Practitioner Family; Visit Provider Internal Medicine Gastroenterology
PROC: 0DJD8ZZ Inspection of Lower Intestinal Tract, Via Natural or Artificial Opening Endoscopic (ICD-10-PCS; CPT 45378; principal; 2024-09-29 10:30)
DX: K64.8 Other hemorrhoids (principal); E66.01 Morbid (severe) obesity due to excess calories; Z68.41 Body mass index [BMI] 40.0-44.9, adult; Z79.52 Long term (current) use of systemic steroids; Z87.19 Personal history of other diseases of the digestive system
CPT/HCPCS: 45378; J2003; J2704; J7120

== ENCOUNTER 2025-02-22 09:58 | Outpatient (CLI) | payer BC, SELFPAY ==
--- NOTE | ~2025-02-22 | MM_ITS ---
EXAMINATION: MM screening [place] BI w nieves HISTORY: Screening TECHNIQUE: Craniocaudal and mediolateral oblique 3-D tomosynthesis images were obtained and synthetic 2-D images were generated. CAD analysis was submitted and interpreted. COMPARISON: 02/19/2024 BREAST PARENCHYMAL COMPOSITION: Not dense: There are scattered areas of fibroglandular density. FINDINGS: There is no evidence of suspicious mass, calcification, or architectural distortion to sugg est malignancy in either breast. There has been no suspicious interval change. IMPRESSION: 1. No mammographic evidence of malignancy. 2. Recommend routine screening mammography in one year. BI-RADS Category 1: Negative Reviewed, dictated and finalized at location B.
== END 2025-02-22 09:59 | disposition home or self-care (01) ==
LOC: MICIMG 09:59
PROVIDERS: PCP Physician Assistant; Visit Provider Obstetrics & Gynecology
DX: Z12.31 Encounter for screening mammogram for malignant neoplasm of breast (principal)
CPT/HCPCS: 77063; 77067